=== PATIENT | male | born 1940 | race Caucasian/White ===

== ENCOUNTER 2021-01-04 11:55 | Emergency (ER) | payer MEDICARE ==
[~2021-01-04 11:55] MED LIST: 3IN1 COMMODE; 3IN1 COMMODE XX; AMARYL2 MG PO; ATARAX25 MG PO; AUGMENTIN 875-1 EACH PO; BACLOFEN 10MG T10 MG PO; BUMEX1 MG PO; CEFDINIR300 MG PO; COUMADIN 2.5MG2.5 MG PO; CRESTOR10 MG PO; DEXILANT60 MG PO; DUONEB 2.5-0.5M1 AMP NEB; ELIQUIS5 MG PO; FUROSEMIDE 40MG40 MG PO; GUAIFENESI100 MG/5 M PO; INDOCIN25 MG PO; INDOMETHACIN50 MG PO; JANUVIA50 MG PO; KEFLEX500 MG PO; LACTINEX1 EACH PO; LANSOPRAZOLE15 MG PO; LASIX40 MG PO; LIPITOR40 MG PO; MAG-OXIDE 400M400 MG PO; MELATONIN5 M2 PO; MUCINEX 600MG600 MG PO; NEBULIZER UNIT NEB; NORCO 5-325 TA1 EACH PO; NORVASC5 MG PO; POTASSIUM CHLO20 ME2 PO; PREDNISONE50 MG PO; PREVACID30 M1 PO; ROBAXIN750 MG PO; TOPROL XL 25MG25 MG PO; TOPROL XL 50 MG50 MG PO; TRAMADOL HCL50 MG PO; ULTRA-LIGHT RO1 EACH XX; ZOLOFT50 MG PO
[2021-01-04 13:33] LABS: BASOPHIL 0.3 % (0-2); EOSINOPHIL 3.1 % (0-7); HGB 14.8 g/dl (13.2-18.0); LYMPHOCYTE 16.2 % (15-48); MCH 29.5 pg (25.0-31.0); MCHC 32.9 g/dL (32.0-36.0); MCV 89.6 fL (78.0-100.0); MONOCYTE 9.5 % (0-12); MPV 10.6 fL (6.0-9.5); NEUTROPHIL 70.5 % (41-80); NRBC 0; PLT 185 K/uL (150-400); RBC 5.02 M/uL (4.70-6.00); WBC 7.4 K/uL (4.0-10.5)
[2021-01-04 13:48] LABS: ALBUMIN 3.5 g/dL (3.4-5.0); BILIRUBIN - TOTAL 1.5 mg/dL (0.2-1.0); BUN/CREAT RATIO (CALC) 19.6 RATIO; CREATININE 1.07 mg/dL (0.67-1.17); GLOBULIN (CALCULATION) 3.6 g/dL; TOTAL PROTEIN 7.1 g/dL (6.4-8.2)
[2021-01-04] MEDS ORDERED: ULTRAM50 MG PO (14:46)
[2021-01-12] MEDS ORDERED: ALLOPURINOL300 MG PO (16:47)
[2021-01-12] MEDS ORDERED: HUMALOG 75100 UNIT/M SC (16:51)
[2021-01-12] MEDS ORDERED: OZEMPIC0.25 MG/0. SC (16:52)
[2021-01-21] MEDS ORDERED: NORCO 5-325 TA1 EACH PO (09:14)
== END 2021-01-04 14:59 | disposition home or self-care (01) ==
LOC: FER 11:55
PROVIDERS: Emergency Medicine
DX: R07.89 Other chest pain (principal); I48.91 Unspecified atrial fibrillation; I25.10 Atherosclerotic heart disease of native coronary artery without angina pectoris; E11.9 Type 2 diabetes mellitus without complications; I10 Essential (primary) hypertension; Z95.1 Presence of aortocoronary bypass graft; Z88.8 Allergy status to other drugs, medicaments and biological substances
CPT/HCPCS: 36415; 71046; 80053; 84484; 85025; 85379; 93005

== ENCOUNTER → 2021-01-21 | Day surgery (SDC) | payer MEDICARE ==
[~2021-01-21] VITALS: Ht 175.3 cm; Wt 136.2 kg
[~2021-01-21] MED LIST changes: +ALLOPURINOL300 MG PO; +HUMALOG 75100 UNIT/M SC; +OZEMPIC0.25 MG/0. SC; +ULTRAM50 MG PO
== END | disposition home or self-care (01) ==
LOC: FAS 06:41
DX: L72.0 Epidermal cyst (principal); E10.9 Type 1 diabetes mellitus without complications; K21.9 Gastro-esophageal reflux disease without esophagitis; E78.00 Pure hypercholesterolemia, unspecified; I10 Essential (primary) hypertension; I48.91 Unspecified atrial fibrillation; G43.909 Migraine, unspecified, not intractable, without status migrainosus; G47.30 Sleep apnea, unspecified; M19.90 Unspecified osteoarthritis, unspecified site; Z88.8 Allergy status to other drugs, medicaments and biological substances; Z79.01 Long term (current) use of anticoagulants; Z79.899 Other long term (current) drug therapy
CPT/HCPCS: J2250; J2704; J3010; J7120

== ENCOUNTER 2021-09-01 08:47 | Emergency (ER) | payer MEDICARE ==
[2021-09-01] MEDS ORDERED: ULTRAM50 MG PO (10:28)
[2021-09-01] MEDS ORDERED: FLEXERIL5 MG PO (10:28)
== END 2021-09-01 10:40 | disposition home or self-care (01) ==
LOC: FER 08:47
DX: M47.812 Spondylosis without myelopathy or radiculopathy, cervical region (principal); I25.2 Old myocardial infarction; E11.9 Type 2 diabetes mellitus without complications; I10 Essential (primary) hypertension; Z95.1 Presence of aortocoronary bypass graft; Z88.8 Allergy status to other drugs, medicaments and biological substances
CPT/HCPCS: 72050